=== PATIENT | female | born 1970 | race Hispanic/Latino ===

== ENCOUNTER → 2018-01-21 | Outpatient (CLI) | payer OTHER ==
--- NOTE | 2018-01-22 08:32 | Diagnostic Imaging Report ---
#[id number] - [id number] #BILATERAL DIGITAL DIAGNOSTIC MAMMOGRAM WITH CAD: 01/21/2018 Comparison is made to exams dated: 01/30/2017 mammogram, 10/04/2015 mammogram and 08/03/2014 mammogram - [facility]. Current study contains 6 films. The tissue of both breasts is extremely dense, which lowers the sensitivity of mammography. Current study was also evaluated with a Computer Aided Detection (CAD) system. There are benign lymph nodes in both breasts. No significant masses, calcifications, or other findings are seen in either breast. There has been no significant interval change. IMPRESSION: BENIGN There is no mammographic evidence of malignancy. A 1 year screening mammogram is recommended. The patient will be notified by letter of the results. 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
== END ==
LOC: MAMMO 11:51
PROVIDERS: ATTEND Family Medicine
DX: N64.4 Mastodynia (principal)
CPT/HCPCS: 77066

== ENCOUNTER → 2018-12-31 | Outpatient (CLI) | payer OTHER ==
--- NOTE | 2018-12-31 13:10 | Diagnostic Imaging Report ---
EXAM: Thoracic spine radiographs-3 views INDICATION: Pain. COMPARISON: None FINDINGS: BONES: The alignment is within normal limits. No acute displaced fractures. Vertebral body heights are preserved. DISCS: No significant degenerative disc changes. JOINTS: The facet joints are unremarkable. SOFT TISSUES: Unremarkable IMPRESSION: No acute thoracic spine radiographic findings. Signed by: Dr. Brannon Daly MD on 12/31/2018 1:07 PM
== END ==
LOC: RAD 11:21
PROVIDERS: ATTEND Family Medicine
DX: M54.6 Pain in thoracic spine (principal)
CPT/HCPCS: 72070

== ENCOUNTER → 2020-12-26 | Outpatient (CLI) | payer OTHER | LOC: RAD 11:58 | PROVIDERS: ATTEND Family Medicine | DX: R05 Cough (principal); J40 Bronchitis, not specified as acute or chronic | CPT/HCPCS: 71046 ==

== ENCOUNTER → 2021-05-24 | Outpatient (CLI) | payer OTHER | LOC: RAD 10:50 | PROVIDERS: ATTEND Family Medicine | DX: M54.2 Cervicalgia (principal) | CPT/HCPCS: 72050 ==